=== PATIENT | male | born 1960 | race Caucasian/White ===

== ENCOUNTER 2021-03-04 23:40 | Emergency (ER) | payer OTHER, SELFPAY ==
[2021-01-01 09:52] VITALS: BMI 23.8
[2021-03-04 23:40] VITALS: BP 120/76; PULSE 57; RESP 18; TEMP 36.2; O2SAT 96; BMI 27.7
--- NOTE | 2021-03-05 00:06 | EDS_ITS ---
HPI History of Present Illness Chief Complaint: Lower Extremity Injury Narrative Narrative: Patient presents with right calf pain, he tells me it feels similar to prior DVT. He has no chest pain or shortness of breath. He has no fever or chills. No known injury to that region. He also noticed some swelling. [facility] Medical History (Updated 03/05/21 @ 00:[address] Trev Reyes MD) Warm autoimmune hemolytic anemia Home Medications cyanocobalamin (vitamin B-12) 1,000 mcg PO DAILY 05/13/16 [History Last Taken Unknown] folic acid 1 mg PO DAILY@0800 05/13/16 [History Last Taken Unknown] Allergy/AdvReac Type Severity Reaction Status Date / Time azithromycin [From Zithromax] Allergy Hives Verified 03/04/21 23:42 cephalexin [Cephalexin] Allergy Itching Verified 03/04/21 23:42 ciprofloxacin Allergy Itching Verified 03/04/21 23:42 minocycline [Minocycline] Allergy Other Verified 03/04/21 23:42 Penicillins Allergy Itching Verified 03/04/21 23:42 Surgical History History of bone marrow biopsy History of elbow surgery History of hernia repair Hx of cholecystectomy Hx of foot surgery Hx of repair of left rotator cuff Social History Smoking Status: Never smoker ROS ROS ED ROS Narrative Past medical history: Reviewed Medications: Reviewed Social history: Noncontributory Review of systems: All systems negative except as indicated General: No fever Cardiovascular: No chest pain Respiratory: No shortness of breath or cough Gastrointestinal: No abdominal pain, nausea vomiting or diarrhea Genitourinary: No dysuria Musculoskeletal: Calf pain as in HPI Skin: No rash Neurological: No memory loss, confusion or any focal weakness Psych: No recent behavioral changes Hematologic: He has hemolytic anemia and does have episodes of easy bleeding EXAM Physical Exam Narrative Exam Narrative: Physical exam General: Well nourished, Well developed, No Acute Distress Head: Normocephalic, Atraumatic Cardiovascular: Regular rate, Regular rhythm Respiratory: No distress, CTA bilaterally Abdomen: Soft, Nontender, Nondistended Back: Nontender, Normal Inspection. Negative for: CVA tenderness Extremities: Right lower extremity calf pain, trace edema is present. No erythema or calor. Skin: Normal color, No rash Neurological: Alert, Normal Strength, Normal Sensation Psychological: Normal affect Const Vital Signs: 03/04/21 23:40 Temperature 97.2 F L Temperature Source Temporal Pulse Rate 57 L Respiratory Rate 18 Blood Pressure 120/76 Blood Pressure Mean 90 Pulse Ox 96 Oxygen Delivery Method Room Air MDM MDM MDM Narrative Medical decision making narrative: Patient will receive an ultrasound in the morning since it is now midnight and we do not have diagnostic radiologic technologist. I will give him Lovenox. Discharge Plan Triage Chief Complaint: Lower Extremity Injury ED Provider: Trev Reyes Dx/Rx/DC Orders Clinical Impression: Calf pain Instructions: ED Leg Spasm Prescriptions: No Action cyanocobalamin (vitamin B-12) 1,000 MCG tablet extended release 1,000 mcg PO DAILY RF: 0 folic acid 1 MG tablet 1 mg PO DAILY@0800 RF: 0 Primary Care Provider: Parish Rey Referrals: Parish Rey MD [Primary Care Provider] - Activity Restrictions/Additional Instructions: You should get a call in the morning about an appointment time for your ultrasound. If you do not get a call call the number on the sheet you were provided. Disposition Disposition: Home, Self Care
[2021-03-05] MEDS: Enoxaparin 100 MG/ML Syringe SC (00:20)
== END 2021-03-05 00:24 | disposition home or self-care (01) ==
PROVIDERS: Emergency Provider Emergency Medicine; PCP Family Medicine
DX: I82.561 Chronic embolism and thrombosis of right calf muscular vein (principal); D59.11 Warm autoimmune hemolytic anemia; Z79.899 Other long term (current) drug therapy; Z86.718 Personal history of other venous thrombosis and embolism
CPT/HCPCS: 93971; 96372; 99282

== ENCOUNTER → 2021-03-05 10:49 | Outpatient (CLI) | payer OTHER, SELFPAY ==
[2021-03-04 23:40] VITALS: BMI 27.7
--- NOTE | 2021-03-05 10:52 | VDLE_ITS ---
Reason For Study: Pain RIGHT GSV is normal. CFV is compressible, spontaneous, phasic, competent and demonstrates normal augmentation. FV is compressible, spontaneous, phasic, competent and demonstrates normal augmentation. POP V is compressible, spontaneous, phasic, competent and demonstrates normal augmentation. T/P Trunk is compressible. PTV is compressible. RT PerV is compressible. Rt GastrocV is partially compressible with bright intraluminal echoes consistent with chronic DVT. Procedure This is a venous duplex using B-mode, color flow and spectral Doppler. Exam performed in department. A preliminary report was called and/or faxed to Dr. Rey. VL/Venous Duplex US, Unilateral Interpretation Summary Chronic deep venous thrombosis right gastrocnemius vein No evidence for proximal progression Patent and compressible right great saphenous vein Ordering Physician: Trev Reyes Referring Physician: Parish Rey Performed By: Brynn Yu RDCS, RVT
== END ==
PROVIDERS: PCP Family Medicine; Referring Provider Emergency Medicine; Visit Provider Emergency Medicine
DX: M79.604 Pain in right leg (principal); I82.561 Chronic embolism and thrombosis of right calf muscular vein
CPT/HCPCS: 93971; 96372; 99282

== ENCOUNTER 2021-11-02 17:35 | Outpatient (CLI) | payer OTHER, SELFPAY ==
--- NOTE | 2021-11-02 | FLU_PTH ---
PATIENT: MARIELLE BURK LOC: [facility] U#:[id number] AGE/SX: 61/M ROOM: RE11/02/[address]: Dr. Ric Hendrix MD : 1960 BED: DIS: 11/02/2021 SPEC #: [id number] RECD: 11/02/21 17:01 STATUS: ARLET REIsha #: [id number] ELIZABETH: 11/02/21 00:[address]: Ric Hendrix DEPT: CYTOLOGY RECD BY: Gisselle Roland ENTERED: 11/03/21 08:52 SP TYPE: Fluid OTHR DR: Dr. Parish Rey MD Tissues: A - Thyroid gland, NOS B - Thyroid gland, NOS Procedures: Special Stain Group II Surgery Specimen Level IV Cytospin Fluid Cytology Other HEADER OPERATION: Left thyroid fine needle aspiration PRE-OP DIAGNOSIS: Multinodular goiter E04.2 TISSUE SUBMITTED: A ? FNA, left thyroid fluid, B ? FNA, left thyroid x12 slides DIAGNOSIS CYTOLOGY A. Fine needle aspiration, left thyroid nodule (cytospin and cell block): Negative for malignant cells. See comment. B. Fine needle aspiration, left thyroid nodule (smears): Atypia of undetermined significance. See comment. AM:yeimi 11/04/2021 COMMENT A. The specimen contains blood. Follicular cells are not identified. B. The specimen is paucicellular. Clinical correlation is suggested. Multi-gene next-generation sequencing panel is recommended for this lesion. CYTOLOGY STUDY Slides are reviewed. CYTOLOGY GROSS A - Received is 30 ml of dark brown cloudy fluid labeled with the patient's name and and designated per the requisition as left thyroid. Submitted for cytology preparation including cell block. B - Received are 12 smears labeled with the patient's name and designated per the requisition as left thyroid. Submitted for staining. / yeimi 11/03/2021 TC:? CPT: 46514 x2, 26841 ADDENDUM ADDENDUM ADDENDUM ADDENDUM 11/09/2021 12:26 ADDENDUM 11/09/2021 12:26 ADDENDUM 11/09/2021 12:26 ADDENDUM 11/09/2021 12:26 ADDENDUM 11/09/2021 12:26 A & B. Adequate for evaluation. AM:yeimi 11/09/2021
== END 2021-11-02 23:59 | disposition home or self-care (01) ==
LOC: LABSPEC 17:35
PROVIDERS: PCP Family Medicine; Visit Provider Surgery
DX: E04.2 Nontoxic multinodular goiter (principal)
CPT/HCPCS: 88108; 88161; 88305; 88313

== ENCOUNTER 2021-12-08 11:19 | Outpatient (CLI) | payer OTHER, SELFPAY ==
--- NOTE | 2021-12-08 | ASPIG_PTH ---
PATIENT: MARIELLE BURK LOC: [facility]#:[id number] AGE/SX: 61/M ROOM: RE12/08/[address]: Dr. Ric Hendrix MD : 1960 BED: DIS: 12/08/2021 SPEC #: [id number] RECD: 12/08/21 13:18 STATUS: ARLET RAUL #: [id number] ELIZABETH: 12/08/21 00:[address]: Ric Hendrix DEPT: CYTOLOGY RECD BY: Desiree Garcia ENTERED: 12/08/21 13:20 SP TYPE: ASP OUT OTHR DR: Dr. Parish Rey MD Tissues: A - Thyroid gland, NOS B - Thyroid gland, NOS Procedures: FNA Specimen Adequacy Special Stain Group II Surgery Specimen Level IV Cytospin Fluid Cytology Other HEADER OPERATION: Ultrasound-guided fine needle aspiration left thyroid biopsy PRE-OP DIAGNOSIS: Thyroid nodule TISSUE SUBMITTED: A - Left superior thyroid nodule, FNA, B - Left inferior thyroid nodule, FNA DIAGNOSIS CYTOLOGY A. Left superior thyroid nodule, fine needle aspiration (smears, cytospin and cell block): Consistent with benign follicular nodule. See comment. B. Left inferior thyroid nodule, fine needle aspiration (smears, cytospin and cell block): Atypical follicular cells of undetermined significance. Adequate for evaluation. See comment. SJ:rg 12/09/2021 COMMENT The specimen is evaluated at the time of FNA by Dr. Mahoney. Immediate Evaluation: A. Rare follicular cells noted. Bloody specimen. B. Rare follicular cells noted. Bloody specimen. A. The specimen is bloody and paucicellular; however, meets the minimal criteria for adequacy of the specimen. B. Multi-gene next-generation sequencing panel is recommended for this patient. This recommendation was communicated to Dr. Hendrix on 12/10/2021 who agrees and Specimen is submitted for Afirma testing. The results will be reported as an addendum. Please make reference to previous specimen ([id number]) fine needle aspiration, left thyroid nodule with diagnosis of atypia of undetermined significance. Correlation with clinical, radiologic findings and appropriate follow up are necessary. Case has been reviewed in consultation with Dr. Eng who concurs with the above diagnosis. IDC:AM CYTOLOGY STUDY Slides are reviewed. CYTOLOGY GROSS A - Received in three passes is 2 ml of bloody fluid labeled with the patient's name, and designated left superior thyroid nodule. Eight imprints and four paps are made from the submitted fluid and the rest is added to CytoLyt for cell block preparation. Submitted for cytology study. A portion of specimen is saved for Afirma studies if needed. B - Received in three passes is 2 ml of bloody fluid labeled with the patient's name, and designated left inferior thyroid nodule. Ten imprints and five paps are made from the submitted fluid and the rest is added to CytoLyt for cell block preparation. Submitted for cytology study. A portion of specimen is saved for Afirma studies if needed. / SJ:rg 12/08/2021 TC:5 CPT: 52704 x2, 92404 x2, 96645 x2, 72281 x2 ADDENDUM ADDENDUM ADDENDUM ADDENDUM ADDENDUM ADDENDUM ADDENDUM 03/23/2022 09:34 ADDENDUM 03/23/2022 09:34 ADDENDUM 03/23/2022 09:34 ADDENDUM 03/23/2022 09:34 ADDENDUM 03/23/2022 09:34 AFIRMA RESULTS REPORT RESULTS INTERPRETATION: The result of this 1.6 cm Mena III nodule A is Afirma GSC suspicious, which suggests a risk of cancer of approximately 50%. Please see complete report in e-chart or EMR
--- NOTE | 2021-12-08 11:21 | US_ITS ---
PROCEDURE: Ultrasound guided left thyroid biopsy. DATE OF EXAMINATION: 12/08/2021. INDICATION: Male, 61 years old. 2 nodules in the left lobe of the thyroid. IMPRESSION: Under direct sonographic guidance, the surgeon performed 3 biopsies of the nodule in the superior and inferior poles of the thyroid gland. Electronically Signed: Francisco J Park MD at 13:59 EDT , PROCEDURE: DATE OF EXAMINATION: INDICATION: Male, 61 years old. PHYSICIAN: FLUOROSCOPY TIME (if supplied): ( ) minutes/seconds RADIATION DOSAGE (If Supplied By Facility): CTDIvol = ( ) mGy, DLP = ( ) mGycm CONSENT: The risks, benefits and alternatives to the procedure were explained to the patient, and the patient agreed to the procedure and signed the consent. SEDATION: STERILE BARRIER TECHNIQUE: The following sterile barrier precautions were used during the procedure: hand hygiene; use of 2% chlorhexidine aseptic; use of a cap, mask, sterile gown, sterile gloves, sterile full body drape, and a large sterile sheet. PROCEDURE/TECHNIQUE: (All elements of maximal sterile barrier technique followed, including US elements as applicable) The risks, benefits, and alternatives to the procedure were explained to patient, and the patient agreed to the procedure and signed a consent form for the procedure. A timeout was performed to confirm the patient''s identity, the type of procedure, to be performed and the site of entry. US/FNA 1st Biopsy w/ US IMPRESSION: Electronically Signed: Francisco J Park MD at 13:59 EDT ,
[2021-12-08] MEDS: Lidocaine 2% (20 ml mdv) 20 ML Vial INFILT (12:35)
--- NOTE | 2021-12-08 13:05 | NURSING ---
pressure held at site for a few minutes, dr sterling remained in the room, waiting for pathology, dressing op site applied, ice pack given for comfort. pt sat for an extra 5 minutes for so to rest prior to leaving. felt fine at time of leaving
--- NOTE | 2021-12-08 13:20 | PCM.HP.BLA ---
History and Physical Date of Admission: 12/08/21 HISTORY AND PHYSICAL ? Denzel Riggins 1960 ? ? REFERRING PHYSICIAN: Parish Rey MD ? CHIEF COMPLAINT: Consult (Thyroid Nodules) ? HPI: The patient is a 60 year old male with a complaint of a left thyroid nodule. This thyroid nodule was found on Ultrasound by [facility]. The patient denies pain, denies difficulty swallowing, deniesrapid enlargement of the neck, deniesdysphagia, denies a change in the voice, denies hot or cold intolerence. The patient has not a prior history of neck radiation treatment. ? ? ? The patient is being seen by me today at the request of Dr. Parish Rey MD for my opinion and advice regarding Multinodular goiter (primary encounter diagnosis) . ? PAST MEDICAL HISTORY PAST MEDICAL HISTORY Diagnosis Date ? AIHA (autoimmune hemolytic anemia) (HCC) ? ? DVT (deep venous thrombosis) (HCC) ? ? IPMN (intraductal papillary mucinous neoplasm) ? ? ? PAST SURGICAL HISTORY PAST SURGICAL HISTORY Procedure Laterality Date ? CHOLECYSTECTOMY N/A 08/2017 ? hernia repair during surgery ? COLONOSCOPY GEN ANES ? 2010 ? LASIK PROCEDURE ? ? ? Both Eyes ? PAST SURGICAL HISTORY OF ? ? ? Bone spur removed from right elbow ? REPAIR ROTATOR CUFF,ACUTE ? ? ? Rotator cuff repair right shoulder ? ? ? CURRENT MEDICATIONS Current Outpatient Medications Medication Sig Dispense Refill ? apixaban (ELIQUIS) 5 mg tab(s) Take 1 tablet by mouth twice daily. 60 tablet 5 ? aspirin 81 mg chewable tablet 1 tablet by ORAL/FEEDING TUBE route once daily. 30 tablet 0 ? calcium carbonate (TUMS 500 ORAL) Take 1,000 mg by mouth once daily. ? ? ? folic acid 1 mg tablet Take 1 tablet by mouth once daily. 100 tablet 2 ? cyanocobalamin (VITAMIN B-12) 1,000 mcg tab Taking one tablet by mouth every 3 days. ? No current facility-administered medications for this visit. ? ? ALLERGIES: Zithromax [Azithromycin], Cephalexin, Cipro [Ciprofloxacin], Maxitrol [Neomycin-Polymyxin B-Dexameth], Minocycline, and Penicillins ? PERSONAL HISTORY: SOCIAL HISTORY Social History ? Tobacco Use ? Smoking status: Never Smoker ? Smokeless tobacco: Never Used Vaping Use ? Vaping Use: Never used Substance Use Topics ? Alcohol use: No ? Drug use: No ? FAMILY HISTORY: FAMILY HISTORY FAMILY HISTORY Problem Relation Age of Onset ? Diabetes Father ? ? type II ? Prostate Cancer Brother ? ? Kidney Disease Brother ? ? Psychiatry Brother ? ? ? REVIEW OF SYMPTOMS: The review of systems data was entered by the nurse and reviewed by me ? Nursing Notes: Pia Delatorre ARON 03/23/2021 3:42 PM Signed REVIEW OF SYSTEMS: General: The patient denies fatigue, denies weight loss, denies weight gain, denies feeling hot, and denies feelings of cold. Eyes: The patient denies glaucoma, NOTES eye injury/surgery, does not wear glasses or contacts. Ear/Nose/Throat: The patient denies allergies, denies hayfever, denies ear infections, and denies bloody noses. Cardiovascular: The patient denies chest pain, denies heart disease, denies high blood pressure,denies cardiac stent, denies prior heart attack, denies irregular heart beat, denies high cholesterol, denies poor circulation, denies heart failure, other cardiac issues, denies claudication, denies cold feet, denies peripheral arterial stent. Respiratory: The patient denies tuberculosis, denies pneumonia, denies frequent cough, denies pulmonary embolism, denies shortness of breath, and denies coughing up blood. Gastrointestinal: The patient denies difficulty swallowing, NOTES acid reflux, denies ulcers, denies vomiting, denies jaundice/hepatitis, denies gallbladder problems, denies black or tarry stools, denies hemorrhoids, denies bleeding from rectum, denies diverticulitis, denies constipation, denies diarrhea, denies loss of stool control, and denies hernias. Kidney/Bladder: The patient denies kidney stones, denies urine infections, and denies bloody urine. Skin: The patient denies a history of skin cancer, denies bleeding/changing moles, and denies a history of skin rash. Neurologic: The patient denies a history of epilepsy/convulsions, denies headaches, denies head/spinal injuries, and denies stroke/TIA. Psychiatric: The patient denies psychiatric medications, denies depression, and denies voices, denies substance abuse. Endocrine: The patient denies thyroid disorders, denies diabetes, and denies hormonal problems. Hematologic: The patient denies a history of bruising, denies bleeding, and denies anemia, denies blood clots. Infections: The patient NOTES a history of measles and mumps, denies rheumatic fever, and denies sexually transmitted diseases. Musculoskeletal: The patient denies back pain/injury, denies back problems, denies sciatica, denies knee/foot trouble, denies arthritis, or denies gout. ? ? When was patient's last Mammogram screening? N/A ? Last Colonoscopy: 2009 ? ? Pia Delatorre LPN ? PHYSICAL EXAMINATION: ? General: The patient is 60 year old male, well nourished, well hydrated in no acute distress. The patient is oriented to time, place, and person. ? VITALS: Temperature 37.2 ?C (98.9 ?F), height 185.4 cm (6' 1), weight 98 kg (216 lb), SpO2 95 %. Body mass index is 28.5 kg/m?. ? HEENT: Normal cephalic, ataumatic, pupils are equally round, sclera are anicteric, mucous membranes are moist, oropharynx is clear. Neck has no masses, asymmetry or lymphadenopathy. Thyroid exam no hard nodules. ? Respiratory: Clear to auscultation and percussion. Normal respiratory excursion and pattern. ? Cardiac: Examination is regular rate and rhythm. ? Abdominal exam: Soft, nontender, with no palpable masses. No hepatosplenomegaly. No palpable hernias. ? Rectal exam: exam deferred ? Extremities: no clubbing, cyanosis or edema. No adenopathy. ? Other: ? LABORATORY VALUES: As Noted ? RADIOLOGIC STUDIES: As Noted ? Assessment IMPRESSION: NODULE - left THYROID ? PLAN: I plan to perform an FNAC of the left Thyroid. ? Diagnoses: (E04.2) Multinodular goiter (primary encounter diagnosis) ? ? ? My findings have been communicated to Dr. Parish Rey MD via shared medical record. This note will be forwarded to Dr. Parish Rey MD. Return to Clinic: The patient is instructed to follow-up with me 1 week post operatively. ? Ric Hendrix III, MD I have re-examined the patient. There are no clinical changes since date of exam.
--- NOTE | 2021-12-08 13:21 | OP.PCM_ITS ---
Problems Associated Problem List Diagnoses (1) Multinodular goiter (nontoxic): Report of Operation Date of Procedure: 12/08/21 Pre-Operative Diagnosis: Multinodular goiter Post-Operative Diagnosis: Same Surgery/Procedure Performed:: Ultrasound-guided fine-needle aspiration of dominant left thyroid nodules x2 Surgeon: Ric Hendrix validation scientist: None Type of Anesthesia: Local Description of Procedure: Patient was brought in the ultrasound unit. Left side of his neck was ultrasound. 2 thyroid nodules were located 1 in the inferior 1 in the superior. Prepped the skin with alcohol. I injected 1% lidocaine plain under ultrasound guidance 3 passes with a 22-gauge needle were performed on the inferior nodule. Identification of the superior nodule local was injected into the neck. Under ultrasound guidance 3 passes with a 22-gauge needle were performed. These were all given to the pathologist. These were very bloody specimens and I did not want to do any further fine- needle aspirations on him for fear of having a significant hematoma. We will wait for the final path report and make recommendations on this. Admit VTE Documentation VTE Present on Admission: No VTE Mechan Device Prophylaxis: None VTE Pharm Prophylaxis ordered?: No
== END 2021-12-08 23:59 | disposition home or self-care (01) ==
PROVIDERS: PCP Family Medicine; Referring Provider Surgery; Visit Provider Surgery
DX: E04.2 Nontoxic multinodular goiter (principal); K21.9 Gastro-esophageal reflux disease without esophagitis; Z79.82 Long term (current) use of aspirin; Z79.01 Long term (current) use of anticoagulants
CPT/HCPCS: 10006; 10005; 88108; 88161; 88172; 88305; 88313

== ENCOUNTER → 2022-06-02 | Outpatient (CLI) | payer OTHER, SELFPAY ==
--- NOTE | 2022-06-02 | IMM_PTH ---
PATIENT: MARIELLE BURK LOC: [facility] U#:[id number] AGE/SX: 62/M ROOM: RE06/02/[address]: Dr. Marielle Nice MD : 1960 BED: DIS: 06/02/2022 SPEC #: [id number] RECD: 06/06/22 13:38 STATUS: ARLET REQ #: [id number] ELIZABETH: 06/02/22 00:[address]: Marielle Nice DEPT: IMMUNOHISTOCHEMISTRY RECD BY: Sulma Cortez ENTERED: 06/06/22 13:40 SP TYPE: IMMUNO OTHR DR: Dr. Parish Rey MD Tissues: Skin of lip, NOS Procedures: p16 (initial) KI-67 (add) PHYSICIAN & INSTITUTION [address] [address] SPECIMEN INFORMATION: Tissue Source: Right gingivolabial sulcus Clinical Info: Right gingivolabial sulcus neoplasm Specimen Number: [id number] CPT code: 03516, 31569 METHODOLOGY: Deparaffinized sections of prefer/formalin-fixed tissue or PAP/DQ stained slides are incubated with monoclonal/polyclonal antibodies/oligonucleotide probes. Localization is made via biotin free immunoperoxidase method. Appropriate controls are performed and reacted as expected. Results on target cell population are indicated in the following table: RESULTS: ANTIBODY / CLONE RESULT P16 (E6H4) positive, focal, patchy Ki-67 (30-9) negative These tests were developed and their performance characteristics determined by [facility]. They may not have been cleared or approved by the U.S. Food and Drug Administration. The FDA has determined that such clearance or approval is not necessary. The above immunohistochemical/dualISH markers are ordered and reviewed by the Pathologist. INTERPRETATION: Right gingivolabial sulcus, biopsy: Consistent with verrucoid keratosis. AM:yeimi 06/07/2022
--- NOTE | 2022-06-02 13:50 | LES_PTH ---
PATIENT: MARIELLE BURK LOC: [facility] U#:[id number] AGE/SX: 62/M ROOM: RE06/02/[address]: Dr. Marielle Nice MD : 1960 BED: DIS: 06/02/2022 SPEC #: [id number] RECD: 06/02/22 15:07 STATUS: ARLET SANTIAGOIsha #: [id number] ELIZABETH: 06/02/22 13:[address]: Marielle Nice DEPT: SURGICAL PATHOLOGY RECD BY: Gisselle Roland ENTERED: 06/03/22 09:53 SP TYPE: Lesion OTHR DR: Dr. Parish Rey MD Tissues: Skin of lip, NOS Procedures: Surgery Specimen Level IV HEADER OPERATION: Biopsy PRE-OP DIAGNOSIS: Right gene labial sulcus neoplasm TISSUE SUBMITTED: Right gingivolabial sulcus neoplasm MICROSCOPIC DIAGNOSIS Right gingivolabial lesion, biopsy: Verrucal keratosis. See comment. AM:yeimi 06/06/2022 COMMENT Results from immunohistochemistry ([id number]) for surrogate HPV marker (p16) will be reported separately. MICROSCOPIC DESCRIPTION Slides are reviewed. GROSS DESCRIPTION Received in fixative is one container labeled with the patient's name and designated right oral lesion. The specimen consists of a piece of mahajan-white mucosal tissue measuring 0.2 x 0.2 x 0.2 cm. The entire specimen is submitted in one cassette. / SJ:yeimi 06/03/2022 TC:5 [facility]: [id number]
== END | disposition home or self-care (01) ==
LOC: LABSPEC 15:13
PROVIDERS: PCP Family Medicine; Visit Provider Otolaryngology
DX: L82.0 Inflamed seborrheic keratosis (principal)
CPT/HCPCS: 88305; 88341; 88342